=== PATIENT | female | born 1930 | race Caucasian/White ===

== ENCOUNTER → 2017-04-06 10:16 | Outpatient (CLI) | payer MEDICARE, OTHER ==
[2010-07-24 13:34] VITALS: BMI 24.3
[2017-04-07 12:37] LABS: APPEARANCE CLOUDY (CLEAR); BILIRUBIN NEGATIVE (NEGATIVE); COLOR DK YELLOW (YELLOW); GLUCOSE NEGATIVE (NEGATIVE); KETONE NEGATIVE (NEGATIVE); LEUKOCYTE ESTERASE 1+ (NEGATIVE); NITRITE NEGATIVE (NEGATIVE); PROTEIN 1+ mg/dL (NEGATIVE); SPECIFIC GRAVITY 1.015 (1.005-1.020); UROBILINOGEN NORMAL (NORMAL)
[2017-04-07 12:39] LABS: BACTERIA MANY /hpf (NONE SEEN); EPITHELIAL CELLS 0-5 /hpf (0-5); HYALINE CAST 0-5 /lpf (NONE SEEN); RED CELLS - URINE 0-5 /hpf (0-5)
== END | disposition home or self-care (01) ==
LOC: D.LABREF 10:16
PROVIDERS: Urology
DX: R88.8 Abnormal findings in other body fluids and substances (principal)

== ENCOUNTER → 2017-08-17 15:20 | Outpatient (CLI) | payer MEDICARE, OTHER ==
[2010-07-24 13:34] VITALS: BMI 24.3
== END | disposition home or self-care (01) ==
LOC: D.ECHO 13:30
DX: G45.9 Transient cerebral ischemic attack, unspecified (principal)

== ENCOUNTER 2017-12-11 13:25 | Inpatient (IN) | payer MEDICARE, OTHER ==
[~2017-12-11] VITALS: Ht 154.9 cm; Wt 56.5 kg
[2017-12-11 14:06] LABS: BASOPHILS 0.1 % (0-2); HEMOGLOBIN 12.9 g/dL (12-16); IMMATURE GRANULOCYTES 0.1 % (0-5); LYMPHOCYTES 24.5 % (15-50); MCH 31.8 pg (26.0-34.0); MCHC 33.1 g/dL (31.0-37.0); MCV 96.1 fL (80.0-100.0); MEAN PLATELET VOLUME 9.8 fL (7.4-10.4); MONOCYTES 7.1 % (2-11); NEUTROPHILS 67.2 % (40-80); PLATELET COUNT 198 10x3/uL (130-400); RBC 4.06 10x6/uL (4.00-5.40); RDW 13.1 % (11.5-14.5)
[2017-12-11 14:25] LABS: ALBUMIN 3.6 g/dL (3.4-5.0); ANION GAP 18.4 mmol/L (8-16); BILIRUBIN - TOTAL 0.47 mg/dL (0.2-1.3); CALCIUM 9.2 mg/dL (8.5-10.1); CARBON DIOXIDE 22.9 mmol/L (21.0-32.0); CREATININE - SERUM 0.9 mg/dL (0.6-1.3); POTASSIUM - SERUM 3.3 mmol/L (3.5-5.1)
[2017-12-11 15:00] LABS: APPEARANCE HAZY (CLEAR); BILIRUBIN NEGATIVE (NEGATIVE); COLOR YELLOW (YELLOW); GLUCOSE NEGATIVE (NEGATIVE); KETONE NEGATIVE (NEGATIVE); NITRITE POSITIVE (NEGATIVE); PROTEIN 1+ mg/dL (NEGATIVE); UROBILINOGEN NORMAL (NORMAL)
[2017-12-11 15:15] LABS: BACTERIA MANY /hpf (NONE SEEN)
[2017-12-11 17:56] VITALS: BP 174/83; BMI 22.7
[2017-12-11] MEDS ORDERED: ULTRAM50 MG PO (18:06)
[2017-12-11] MEDS ORDERED: ARICEPT5 MG PO (18:08)
[2017-12-11] MEDS ORDERED: OMEPRAZOLE40 MG PO (18:08)
[2017-12-11] MEDS ORDERED: TUMS500 MG PO (18:08)
[2017-12-11] MEDS ORDERED: NORVASC10 MG PO (18:09)
[2017-12-11] MEDS ORDERED: PRAVACHOL20 MG PO (18:09)
[2017-12-11] MEDS ORDERED: COLACE100 MG PO (18:10)
[2017-12-11] MEDS ORDERED: PRESERVISION AR1 CAP PO (18:11)
[2017-12-11] MEDS ORDERED: CO Q-10100 MG PO (18:11)
[2017-12-11] MEDS ORDERED: AGGRENOX 200/251 CAP PO (18:12)
[2017-12-11] MEDS ORDERED: CELEXA20 MG PO (18:12)
[2017-12-11] MEDS ORDERED: APAP325 MG PO (18:14)
[2017-12-11 21:39] VITALS: BP 177/94
[2017-12-12 00:54] VITALS: BP 171/92
[2017-12-12 06:02] VITALS: BP 170/87
[2017-12-12 09:46] VITALS: BP 134/80
[2017-12-12 13:02] VITALS: BMI 22.6
[2017-12-12 14:20] VITALS: Ht 154.9 cm; Wt 56.5 kg
[2017-12-12 16:29] VITALS: BP 175/72
[2017-12-12 19:00] VITALS: BP 150/116
[2017-12-13] VITALS: BP 167/87
[2017-12-13 05:36] LABS: BASOPHILS 0.6 % (0-2); EOSINOPHILS 1.3 % (0-7); HEMATOCRIT 36.7 % (36.0-48.0); HEMOGLOBIN 12.2 g/dL (12-16); IMMATURE GRANULOCYTES 0.2 % (0-5); LYMPHOCYTES 27.1 % (15-50); MCH 31.7 pg (26.0-34.0); MCHC 33.2 g/dL (31.0-37.0); MCV 95.3 fL (80.0-100.0); MEAN PLATELET VOLUME 9.9 fL (7.4-10.4); MONOCYTES 11.9 % (2-11); NEUTROPHILS 58.9 % (40-80); PLATELET COUNT 216 10x3/uL (130-400); RBC 3.85 10x6/uL (4.00-5.40); RDW 13.1 % (11.5-14.5)
[2017-12-13 05:48] LABS: WBC 4.6 10x3/uL (4.8-10.8)
[2017-12-13 07:14] LABS: ANION GAP 12.7 mmol/L (8-16); CALCIUM 9.2 mg/dL (8.5-10.1); CARBON DIOXIDE 27.9 mmol/L (21.0-32.0)
[2017-12-13 07:17] LABS: CREATININE - SERUM 1.2 mg/dL (0.6-1.3)
[2017-12-13 07:18] LABS: POTASSIUM - SERUM 2.6 mmol/L (3.5-5.1)
[2017-12-13 08:43] VITALS: BP 177/80
[2017-12-13] MEDS ORDERED: MACRODANTIN50 MG PO (09:58)
[2017-12-13 12:11] VITALS: BP 164/87
== END 2017-12-13 14:01 | disposition home health service (06) | DRG 690 ==
LOC: D.ER 13:25 → D.M2 15:59 → D.SDCHOLD 12-13 11:18 → D.M2 12-13 14:01
PROVIDERS: Emergency Medicine; Internal Medicine Nephrology
PROC: 0T9B70Z Drainage of Bladder with Drainage Device, Via Natural or Artificial Opening (ICD-10-PCS; principal; 2017-12-11)
DX: N39.0 Urinary tract infection, site not specified (principal); R41.0 Disorientation, unspecified; M81.0 Age-related osteoporosis without current pathological fracture; M19.90 Unspecified osteoarthritis, unspecified site; E78.5 Hyperlipidemia, unspecified; G89.29 Other chronic pain; M54.9 Dorsalgia, unspecified; Z86.73 Personal history of transient ischemic attack (TIA), and cerebral infarction without residual deficits; I12.9 Hypertensive chronic kidney disease with stage 1 through stage 4 chronic kidney disease, or unspecified chronic kidney disease; N18.3 Chronic kidney disease, stage 3 (moderate); F03.90 Unspecified dementia, unspecified severity, without behavioral disturbance, psychotic disturbance, mood disturbance, and anxiety; I25.10 Atherosclerotic heart disease of native coronary artery without angina pectoris; E87.6 Hypokalemia